=== PATIENT | female | born 1975 | race American Indian/Alaskan Native ===

== ENCOUNTER 2018-08-09 20:54 | Emergency (ER) | payer OTHER ==
[2018-08-09 21:06] VITALS: BP 135/82
[2018-08-09 21:37] LABS: Basophils # (Auto) 0.1 K/mm3 (0.0-0.1); Eosinophils # (Auto) 0.2 K/mm3 (0.0-0.4); Eosinophils % (Auto) 3.4 % (0.0-4.3); Hemoglobin 11.9 gm/dl (10.1-14.3); Lymphocytes # (Auto) 2.3 K/mm3 (1.2-5.4); Lymphocytes % (Auto) 33.6 % (13.4-35.0); Mean Corpuscular HGB Conc 33 % (30-34); Mean Corpuscular Volume 89 fl (79-97); Monocytes # (Auto) 0.5 K/mm3 (0.0-0.8); Monocytes % (Auto) 7.4 % (0.0-7.3); Platelet Count 289 K/mm3 (140-440); Red Blood Count 4.03 M/mm3 (3.65-5.03); Red Cell Distribution Width 15.5 % (13.2-15.2)
[2018-08-09 21:40] LABS: Bilirubin,Urine NEG (Negative); Blood,Urine MOD (Negative); Color,Urine Straw (Yellow); Mucus,Urine FEW /HPF; Protein,Urine <15 mg/dL mg/dL (Negative); Urobilinogen,Urine < 2.0 mg/dL (<2.0)
--- NOTE | 2018-08-09 22:10 | Emergency Department Report ---
ED Female HPI - General Chief complaint: Vaginal Bleeding Stated complaint: VAG BLEEDING Time Seen by Provider: 08/09/18 21:00 Source: patient Mode of arrival: Ambulatory Limitations: No Limitations - History of Present Illness Initial comments: This is a 42-year-old female who was not known to this provider previously. She is 4, para 2. Last menstrual period is June 16. Has a history of 2, questionable asthma. Patient reports that she had an outpatient ultrasound with her outpatient animal sitter, that suggested a little early intrauterine . Last quantitative hCG was 1440 on 06/23/2018 The patient presents to the emergency room today with a complaint of vaginal bleeding and spotting for the past 4 days. There is minimal cramping, symptoms intermittent, did not radiate anywhere, did not have exacerbating or relieving factors. The patient denies irritative, obstructive urinary symptoms. She denies other physical pain, heavy lifting. Patient and family reports that recent outpatient blood work confirmed Rh+ blood type. MD Complaint: vaginal bleeding -: Gradual, days(s) Location: suprapubic Radiation: non-radiating Severity: mild Quality: cramping Consistency: intermittent Improves with: none Worsens with: none Are you Now?: Yes Associated Symptoms: vaginal bleeding. denies: dysuria - Related Data Allergies Allergy/AdvReac Type Severity Reaction Status Date / Time No Known Allergies Allergy Verified 08/09/18 21:05 ED Review of Systems ROS: Stated complaint: VAG BLEEDING Other details as noted in HPI Constitutional: denies: fever ENT: denies: epistaxis Respiratory: denies: cough Cardiovascular: denies: chest pain Gastrointestinal: denies: vomiting Genitourinary: abnormal menses. denies: dysuria Musculoskeletal: denies: back pain Skin: denies: lesions Neurological: denies: weakness Psychiatric: denies: anxiety ED Past Medical Hx - Social History Smoking Status: Never Smoker Substance Use Type: Alcohol ED Physical Exam - General Limitations: No Limitations General appearance: alert, in no apparent distress - Head Head exam: Present: atraumatic, normocephalic - Eye Eye exam: Present: normal appearance, EOMI. Absent: nystagmus - ENT ENT exam: Present: normal exam, normal orophraynx, mucous membranes moist, normal external ear exam - Neck Neck exam: Present: normal inspection, full ROM. Absent: tenderness, meningi smus - Respiratory Respiratory exam: Present: normal lung sounds bilaterally. Absent: respiratory distress - Cardiovascular Cardiovascular Exam: Present: regular rate, normal rhythm, normal heart sounds. Absent: bradycardia, tachycardia, irregular rhythm, systolic murmur, diastolic murmur, rubs, gallop - GI/Abdominal GI/Abdominal exam: Present: soft. Absent: distended, tenderness, guarding, rebound, rigid - Extremities Exam Extremities exam: Present: normal inspection, full ROM, other (2+ pulses in the bilateral upper extremities. There is no long bony tenderness. The pelvis is stable. There is no palpable cord.). Absent: tenderness, calf tenderness - Back Exam Back exam: Present: normal inspection, full ROM. Absent: tenderness, CVA tenderness (R), paraspinal tenderness, vertebral tenderness - Neurological Exam Neurological exam: Present: alert, other (Extraocular movements intact. Tongue midline. No facial droop. Facial sensation intact to light touch in the V1, V2, V3 distribution bilaterally. 5 and 5 strength in 4 extremities.. Sensation is intact to light touch in 4 extremities.). Absent: motor sensory deficit - Psychiatric Psychiatric exam: Present: normal affect, normal mood - Skin Skin exam: Present: warm, dry, intact, normal color. Absent: rash ED Course Vital Signs 08/09/18 08/09/18 21:01 22:59 Temperature 98.2 F Pulse Rate 88 Respiratory 18 18 Rate Blood Pressure 135/82 O2 Sat by Pulse 100 99 Oximetry ED Medical Decision Making - Lab Data Result diagrams: 08/09/18 21:09 Vital Signs 08/09/18 21:01 Temperature 98.2 F Pulse Rate 88 Respiratory 18 Rate Blood Pressure 135/82 O2 Sat by Pulse 100 Oximetry Lab Results 08/09/18 08/09/18 08/09/18 Range/Units 21:01 21:09 21:09 WBC 6.7 (4.5-11.0) K/mm3 RBC 4.03 (3.65-5.03) M/mm3 Hgb 11.9 (10.1-14.3) gm/dl Hct 36.0 (30.3-42.9) % MCV 89 (79-97) fl MCH 30 (28-32) pg MCHC 33 (30-34) % RDW 15.5 H (13.2-15.2) % Plt Count 289 (140-440) K/mm3 Lymph % (Auto) 33.6 (13.4-35.0) % [place] % (Auto) 7.4 H (0.0-7.3) % Eos % (Auto) 3.4 (0.0-4.3) % Baso % (Auto) 1.0 (0.0-1.8) % Lymph # 2.3 (1.2-5.4) K/mm3 [place] # 0.5 (0.0-0.8) K/mm3 Eos # 0.2 (0.0-0.4) K/mm3 Baso # 0.1 (0.0-0.1) K/mm3 Seg Neutrophils % 54.6 (40.0-70.0) % Seg Neutrophils # 3.7 (1.8-7.7) K/mm3 HCG, Quant 527.3 H (0-4) mIU/mL Urine Color Straw (Yellow) Urine Turbidity Clear (Clear) Urine pH 6.0 (5.0-7.0) Ur Specific [place] 1.008 (1.003-1.030) Urine Protein <15 mg/dl (Negative) mg/dL Urine Glucose (UA) Neg (Negative) mg/dL Urine Ketones Neg (Negative) mg/dL Urine Blood Mod (Negative) Urine Nitrite Neg (Negative) Urine Bilirubin Neg (Negative) Urine Urobilinogen < 2.0 (<2.0) mg/dL Ur Leukocyte Esterase Neg (Negative) Urine WBC (Auto) 3.0 (0.0-6.0) /HPF Urine RBC (Auto) 2.0 (0.0-6.0) /HPF Urine Mucus Few /HPF - Radiology Data Radiology results: pending, report reviewed, image reviewed Print Report Referring Physician: CULLEN DONATO Patient Name: LETHA HENDRIX Date of : 1975 Sex: Female Report Date: 2018-08-09 Report Status: Finalized Findings [facility] [address] [place] [address] Ultrasound Report Signed Patient: LETHA LAL MR# : [id number] : 1975 Acct:[id number] Age/Sex: 42 / F ADM Date: 08/09/18 Loc: ED Attending Dr: Ordering Physician: CULLEN DONATO MD Date of Service: 08/09/18 Procedure(s): US OB transvaginal Accession Number(s): [id number] cc: CULLEN BAKER MD PROCEDURE: US OB TRANSVAGINAL TECHNIQUE: Real-time transvaginal sonography in multiple planes of the pelvis was performed with image documentation. Grayscale, color flow Doppler imaging and velocity spectral waveform analysis of the ovaries was employed (duplex imaging). HISTORY: vag bleed COMPARISONS: None FINDINGS: UTERUS Size: 9.7 x 6.2 x 6.3 cm. Endometrial thickness: 6.9 mm. Orientation: anteverted. Cervix: Normal. Fibroids/masses: None. RIGHT Ovary: 2.5 x 2 x 2.2 cm. Appearance: Normal. Doppler images: Normal spectral waveforms and color flow images of the arterial inflow and venous outflow.. LEFT Ovary: 2.4 x 1.5 x 1.5 cm. Appearance: Normal. Doppler images: Normal spectral waveforms and color flow images of the arterial inflow and venous outflow... Pelvic fluid: None. IMPRESSION: There is no evidence of intrauterine or ectopic . Normal uterus and ovaries.. This document is electronically signed by Kane Mendoza MD., August 09 2018 11:21:47 PM ET Transcribed By: CO Dictated By: KANE MENDOZA MD Electronically Authenticated By: KANE MENDOZA MD Signed Date/Time: 08/09/18 7733 - Medical Decision Making Differential diagnosis, including not limited to: Miscarriage, threatened miscarriage, retained products of conception, ectopic Assessment and plan: 42-year-old female with probable miscarriage. The patient is afebrile with reassuring vital signs, with no significant lower abdominal tenderness. The patient declined and external, internal gynecologic examination, and patient and family reports that she is Rh+. Quantitative hCG noted today to be low 500s, down from reported outpatient value of 1440. The patient's partner is also a physician, and he and I have looked over the patient's ultrasound together in conjunction. Neither of us appreciate an obvious intrauterine or ectopic . The patient has endorses a desire to leave. Explained to the patient that this provider is not a formally trained radiologist, and therefore small ectopic could theoretically be missed by myself and her partner. However, she reports that she is reliable to follow-up with her outpatient animal sitter within the next few days, and she reports that she is reliable to follow-up. I have informed the patient that I will contact her partner/herlself with the formal interpretation of the ultrasound. Patient verbalizes understanding and is agreeable to this plan of care Critical care attestation.: If time is entered above; I have spent that time in minutes in the direct care of this critically ill patient, excluding procedure time. ED Disposition Clinical Impression: Miscarriage Disposition: DC-01 TO HOME OR SELFCARE Is pt being admited?: No Does the pt Need Aspirin: No Condition: Stable Instructions: Spontaneous Miscarriage (ED) Additional Instructions: As we discussed, symptoms likely coming from miscarriage. Rest, avoid heavy lifting, avoid strenuous physical activities, and refrain from intimate activity until cleared by your gynecologic physician. I recommend follow-up with her [facility]INEER[facility] SPECIALIST physician within the next 3-5 days. Advance diet as tolerated, and return to the emergency room right away with new pain, worsening pain, migration of pain, projectile vomiting, change in mental status, confusion, new, worsening or different symptoms. Referrals: [facility] [Provider Group] - 3-5 Days [facility] [Provider Group] - 3-5 Days [facility] [Provider Group] - 3-5 Days
--- NOTE | 2018-08-09 23:23 | Ultrasound Report ---
PROCEDURE: US OB TRANSVAGINAL TECHNIQUE: Real-time transvaginal sonography in multiple planes of the pelvis was performed with luana ge documentation. Grayscale, color flow Doppler imaging and velocity spectral waveform analysis of th e ovaries was employed (duplex imaging). HISTORY: vag bleed COMPARISONS: None FINDINGS: UTERUS Size: 9.7 x 6.2 x 6.3 cm. Endometrial thickness: 6.9 mm. Orientation: anteverted. Cervix: Normal. Fibroids/masses: None. RIGHT Ovary: 2.5 x 2 x 2.2 cm. Appearance: Normal. Doppler images: Normal spectral waveforms and color flow images of the arterial inflow and venous out flow.. LEFT Ovary: 2.4 x 1.5 x 1.5 cm. Appearance: Normal. Doppler images: Normal spectral waveforms and color flow images of the arterial inflow and venous out flow... Pelvic fluid: None. IMPRESSION: There is no evidence of intrauterine or ectopic . Normal uterus and ovaries.. This document is electronically signed by Ramu Recinos MD., August 09 2018 11:21:47 PM ET
--- NOTE | 2018-08-09 23:24 | Ultrasound Report ---
PROCEDURE: US OB <= 14 WEEKS FETUS TECHNIQUE: Real-time transabdominal sonography in multiple planes of the pelvis was performed with i mage documentation. Grayscale, color flow Doppler imaging and velocity spectral waveform analysis of the ovaries was employed (duplex imaging). HISTORY: vag bleed COMPARISONS: None FINDINGS: UTERUS Size: 9.7 x 6.2 x 6.3 cm. Endometrial thickness: 6.9 mm. Orientation: anteverted. Cervix: Normal. Fibroids/masses: None. RIGHT Ovary: 2.5 x 2 x 2.2 cm. Appearance: Normal. Doppler images: Normal spectral waveforms and color flow images of the arterial inflow and venous out flow.. LEFT Ovary: 2.4 x 1.5 x 1.5 cm. Appearance: Normal. Doppler images: Normal spectral waveforms and color flow images of the arterial inflow and venous out flow... Pelvic fluid: None. IMPRESSION: There is no evidence of intrauterine or ectopic . Normal uterus and ovaries.. This document is electronically signed by Ramu Recinos MD., August 09 2018 11:22:29 PM ET
== END 2018-08-09 22:57 | disposition home or self-care (01) ==
LOC: ED 20:54
DX: O03.9 Complete or unspecified spontaneous abortion without complication (principal); Z3A.01 Less than 8 weeks gestation of pregnancy
CPT/HCPCS: 36415; 76801; 76817; 81001; 84702; 85025